=== PATIENT | male | born 1945 | race Caucasian/White ===

== ENCOUNTER 2016-11-17 13:55 | Emergency (ER) | payer MEDICARE, OTHER ==
[2016-11-17 14:07] VITALS: BP 173/103; PULSE 84; RESP 18; TEMP 98.5; O2SAT 95
[2016-11-17] MEDS ORDERED: MELO7.5T4 PO (14:44)
--- NOTE | 2016-11-17 15:21 | PD ---
HPI Chief Complaint: Eye Problems/Injury Time Seen by Provider: 15:20 Travel History International Travel<30 days: No Contact w/Intl Traveler<30days: No Traveled to known affect area: No History of Present Illness HPI 71-year-old male presents to the ED for evaluation of left eye pain. Onset approximately one hour ago. Patient states he was lying under a car, working and felt something fall into his eye. He endorses mild blurriness and "scratchy " pain in the left eye. Denies headache, dizziness, previous injury to the eye. He flushed his eye with Visine and states that it "burned." No treatment at home. Patient is on vacation from [place], he endorses established ophthalmology care at home. [facility] Past Medical History Cardiovascular Problems: Yes (HTN) Diminished Hearing: No Hypertension: Yes Musculoskeletal: Yes (osteoperosis) Psychiatric: Yes (PTSD) Tetanus Vaccination: Unknown Influenza Vaccination: Yes Past Surgical History Eye Surgery: Yes (cataract) Social History Alcohol Use: No Tobacco Use: No Substance Use: No Allergies-Medications (Allergen,Severity, Reaction): Coded Allergies: Keflex (Verified Allergy, Severe, FLUSH, 11/17/16) Reported Meds & Prescriptions Reported Meds & Active Scripts Active Polytrim Opth Drops (Polymyxin/Trimethoprim Sulfate) 10,000-0.1 Unit/Ml-% Soln 1 Drop LEFT EYE Q6HR 5 Days Reported Meloxicam 7.5 Mg Tab 7.5 Mg PO DAILY Review of Systems Except as stated in HPI: all other systems reviewed are Neg Physical Exam Narrative GENERAL: Well-nourished, well-developed pleasant white male in no acute distress. SKIN: Warm and dry. HEAD: Normocephalic. Atraumatic. EYES: No scleral icterus. PERRLA. EOMI. No foreign bodies of the palpebral surfaces. RIGHT EYE: No injection or drainage. LEFT EYE: moderately injected and tearing. Fluorescein staining reveals no corneal abrasion. There is a miniscule angel in the medial canthus that was easily removed with a q tip. ENT: Pearly mcdaniels tympanic membranes bilaterally. Nasal mucosa is moist. Oropharynx without erythema, edema or exudate. NECK: Supple, trachea midline. No JVD or lymphadenopathy. CARDIOVASCULAR: Regular rate and rhythm without murmurs, gallops, or rubs. No carotid bruits. 2+ DP and radial pulses bilaterally. RESPIRATORY: Breath sounds clear and equal bilaterally. No accessory muscle use. GASTROINTESTINAL: Abdomen soft, non-tender, nondistended. + Bowel sounds MUSCULOSKELETAL: No cyanosis, or edema. Full, active range of motion. Strength 5/5. Neurovascularly intact. BACK: Nontender without obvious deformity. No CVA tenderness. Data Data Last Documented VS Vital Signs Date Time Temp Pulse Resp B/P Pulse Ox O2 Delivery O2 Flow Rate FiO2 11/17/16 14:07 98.5 84 18 173/103 95 Orders Proparacaine 0.5% Opth Soln (Alcaine 0.5 (11/17/16 15:30) MDM Medical Decision Making Medical Screen Exam Complete: Yes Emergency Medical Condition: Yes Differential Diagnosis Foreign body versus corneal abrasion versus iritis versus other Narrative Course 71-year-old male presents to the ED for evaluation of left eye pain. Onset approximately one hour ago. Patient states he was lying under a car working and felt something fall into his eye. He endorses mild blurriness and "scratchy " pain in the left eye. Denies headache, dizziness, previous injury to the eye. He flushed his eye with Visine and states that it "burned." No treatment at home. Patient is on vacation from [place], he endorses established ophthalmology care at home. Vitals reviewed. Single drop of proparacaine was administered to the left eye. Physical exam reveals left eye moderately injected and tearful. Fluorescein staining reveals no corneal abrasion. There is a miniscule angel in the medial canthus that was easily removed with a Q- tip. Eye was flushed with copious saline. PERRLA. EOMI. Patient was prescribed Polytrim drops 5 times a day for the next 7 days. He is instructed to follow-up with the marketing/sales person upon return home, return to the ED if symptoms worsen. He indicated understanding of the instructions and was amenable to plan of care. Patient stable and discharged home. Diagnosis Primary Impression: Foreign body of left eye Qualified Code: T15.92XA - Foreign body of left eye, initial encounter Referrals: Medical Coding Auditor Patient Instructions: Eye Foreign Body (ED), General Instructions Additional Instructions: Rest, hydrate. Apply Polytrim 1 drop into the affected eye 4 times per day for the next five days. [id number] anti-inflammatory medications like Aleve or ibuprofen as needed for pain. Follow-up with the marketing/sales person this week. Return to the ED for any urgent or emergent medical condition. Med/Other Pt SpecificInfo: Prescription(s) given Scripts Polymyxin B-Trimethoprim Opth Drops (Polytrim Opth Drops)10,000-0.1 Unit/Ml-% Soln1 Drop LEFT EYE Q6HR 5 Days Ref 0 Prov:Renita Chen MD 11/17/16 Disposition: 01 DISCHARGE HOME Condition: Stable Charleen Bui Nov 17, 2016 15:21
[2016-11-17] MEDS ORDERED: PROPARACAINE HCL 0.5% OPHT SOLN 15 ML BTL LEFT EYE ONE (15:30)
[2016-11-17] MEDS ORDERED: POLY10O LEFT EYE (15:57)
== END 2016-11-17 16:29 | disposition home or self-care (01) ==
LOC: PHEFT 13:55
DX: T15.92XA Foreign body on external eye, part unspecified, left eye, initial encounter (principal)
CPT/HCPCS: 99283